=== PATIENT | male | born 1980 | race Caucasian/White ===

== ENCOUNTER 2016-09-06 09:29 | Emergency (ER) | payer OTHER ==
[2016-09-06 09:48] VITALS: BP 121/59
[2016-09-06] MEDS ORDERED: Ibuprofen TAB* 600 MG PO ONE (10:23)
--- NOTE | 2016-09-06 10:36 | UC ---
Analisa Lozano Alok, scribed for Deidra Trotter MD on 09/06/16 at 1025 . Back Pain HPI - HPI Summary HPI Summary: 35 y/o male presents to with c/o lower back pain following moving one 150- 200 lbs shafting cleaner up flight of stairs at 1530 yesterday afternoon while at work. Pt states that he made it about half way up the flight of stairs when his lower back "gave out", causing him to crunch down but not fall. No loss of strength in legs. No direct trauma. Pt states that his legs did not give out, and denies any numbness, tingling, or weakness in his lower extremities. Pt also denies any changes in BM or bladder control/incontinence. Pt has taken ibuprofen and used Icy Hot for pain relief last night with mild affect. Pt currently states he is at a 4 out of 10 in pain severity and has not taken analtgesia today. Pt states he has never had back problems or back surgeries before, has had groin surgery for a hernia once, has anxiety and is allergic to hydrocodone. Pt rarely uses EtOH and uses e-cigarettes but does not smoke tobacco. - History of Current Complaint Chief Complaint: UCBackPain Stated Complaint: LOWER BACK INJURY Time Seen by Provider: 09/06/16 09:54 Hx Obtained From: Patient Onset/Duration: Gradual Onset, Lasting Days, Still Present Timing: Constant Severity Initially: Moderate Severity Currently: Moderate Pain Intensity: 4 Pain Scale Used: 0-10 Numeric Back Pain: Is Discrete @ - lower back Alleviating: OTC Meds - Ibuprofen, Icy Hot Associated Signs And Symptoms: Negative: Fever, Weakness, Numbness, Tingling, Bladder Incontinence, Bowel Incontinence - Allergies/Home Medications Allergies/Adverse Reactions: Allergies Allergy/AdvReac Type Severity Reaction Status Date / Time Hydrocodone Allergy Intermediate Itching Verified 09/06/16 09:41 Diphenhydramine Allergy Anxiety Verified 09/06/16 09:41 [From Benadryl] Pseudoephedrine Allergy Anxiety Verified 09/06/16 09:41 [From Sudafed] Home Medications: Home Medications Ibuprofen [Ibuprofen 200 MG] 40 mg PO Q6H PRN 09/06/16 [History Confirmed ] PMH/Surg Hx/FS Hx/Imm Hx Previously Healthy: Yes Psychological History Of: Reports: Anxiety - Surgical History Surgical History: Yes Surgery Procedure, Year, and Place: hernia surgery - Family History Known Family History: Positive: Other - Yes Depression (Aunt) No Alcohol abuse - Social History Occupation: Employed Full-time Lives: With Family - Mother Alcohol Use: Rare Substance Use Type: None Smoking Status (MU): Former Smoker Type: eCigarettes - Immunization History Most Recent Influenza Vaccination: none Most Recent Tetanus Shot: 09/2014 Review of Systems Constitutional: Negative Skin: Negative Eyes: Negative ENT: Negative Respiratory: Negative Cardiovascular: Negative Gastrointestinal: Negative Genitourinary: Negative Motor: Negative Neurovascular: Negative Musculoskeletal: Myalgia - Lower back pain Neurological: Negative Psychological: Negative All Other Systems Reviewed And Are Negative: Yes Physical Exam Triage Information Reviewed: Yes Appearance: Well-Appearing, No Pain Distress, Well-Nourished, Other: - PT ambulating around department. No limitations of obvious discomfort Vital Signs: Initial Vital Signs Temp 98.6 F 09/06/16 09:43 Pulse 70 09/06/16 09:43 Resp 16 09/06/16 09:43 BP 121/59 09/06/16 09:43 Pulse Ox 100 09/06/16 09:43 Neck: Positive: Supple, Nontender, No Lymphadenopathy Respiratory Exam: Normal Respiratory: Positive: Normal breath sounds, No respiratory distress Cardiovascular Exam: Normal Cardiovascular: Positive: RRR, No Murmur Musculoskeletal: Positive: Strength Intact, Other: - No pain C/T/L/S. no reproducible pain but states pain is mid sacral paraspinal area + SLE b/l with report back L>R + flex/ext knee, merlyn + great toe extension + abduction, adduction without discomfort Neurological: Positive: Other: - + b/l equal sensation throughout b/l LE 2+ patellar, achilles - no clonus Psychological Exam: Normal Skin Exam: Normal Back Pain Course/Dx - Course Course Of Treatment: Pt with low sacral paraspinal pain s/p pulling injury at work yesterday. Pt with minimal discomfort with exam, no analgesia today. Recommend motrin/apap. heat. stretch. flexeril QHS x 5 days. PCP f/u - physician referral if PCP does not take WC. work restrictions. return prn - precautions discussed - Differential Dx/Diagnosis Provider Diagnoses: back strain Discharge - Discharge Plan Condition: Stable Disposition: HOME Prescriptions: Cyclobenzaprine TAB* [Flexeril 10 MG TAB*] 10 mg PO BEDTIME #5 tab Patient Education Materials: Low Back Strain (ED) Forms: *Work Release Referrals: [facility] [Outside] Tate Hurley MD [Primary Care Provider] - Additional Instructions: - Okay to alternate ibuprofen (Advil, Motrin) and tylenol every 3 hours for pain or fever. Take with food. Do NOT take for more than 4-5 days. -Okay to take muscle relaxant at bedtime as prescribed. DO NOT drive, operate machinery or drink alcohol while taking this medicaton - Apply heat to your back - 20 minutes at a time, 2-3 times a day. Slow gentle stretching when your muscles are warm - Contact your doctor to schedule a follow-up appointment. If you doctor does not see workers comp cases, you may contact the physician referral number provided for a follow-up appointment. If you develop leg weakness or difficulty controlling your bowel or bladder, you should return to the emergency department The documentation as recorded by the Analisa angel Alok accurately reflects the service I personally performed and the decisions made by , Deidra Trotter MD.
== END 2016-09-06 10:43 | disposition home or self-care (01) ==
LOC: UCEAST 09:29
DX: S39.012A Strain of muscle, fascia and tendon of lower back, initial encounter (principal); X50.0XXA Overexertion from strenuous movement or load, initial encounter; Y93.89 Activity, other specified; Y92.89 Other specified places as the place of occurrence of the external cause; Y99.0 Civilian activity done for income or pay; Z88.5 Allergy status to narcotic agent; Z88.8 Allergy status to other drugs, medicaments and biological substances; Z87.891 Personal history of nicotine dependence
CPT/HCPCS: 99212; A9270-GY; G0463

== ENCOUNTER 2016-09-19 08:18 | Emergency (ER) | payer BC, OTHER ==
[2016-09-19 08:36] VITALS: BP 112/67
--- NOTE | 2016-10-01 16:52 | UC ---
Gloria Lozano Anna, scribed for Sofia Gupta MD on 09/19/16 at 0849 . Respiratory Complaint HPI - HPI Summary HPI Summary: Patient is a 35 y/o male coming to [facility] [place] presenting with gradual onset of a cough that began one week ago. He first noticed a sore throat. He has additionally experienced nausea and fatigue. The symptoms had somewhat resolved , then worsened yesterday. He feels congested and as if his throat is still sore. Denies rashes, fever, chills, myalgia. He did not receive a flu shot this year. His girlfriends children have had a cold. He has been drinking tea at night. 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 He smokes electronic cigarettes. He does not regularly use inhalers. He is agreeable to using one. - History of Current Complaint Stated Complaint: CONGESTION Time Seen by Provider: 09/19/16 08:28 Hx Obtained From: Patient Onset/Duration: Lasting Days, Still Present, Worse Since - yesterday - Allergies/Home Medications Allergies/Adverse Reactions: Allergies Allergy/AdvReac Type Severity Reaction Status Date / Time Hydrocodone Allergy Intermediate Itching Verified 09/19/16 08:35 Diphenhydramine Allergy Anxiety Verified 09/19/16 08:35 [From Benadryl] Pseudoephedrine Allergy Anxiety Verified 09/19/16 08:35 [From Sudafed] PMH/Surg Hx/FS Hx/Imm Hx Psychological History Of: Reports: Anxiety - Surgical History Surgical History: Yes Surgery Procedure, Year, and Place: hernia surgery - Family History Known Family History: Positive: Other - Yes Depression (Aunt) No Alcohol abuse - Social History Occupation: Employed Full-time - Snow removal Lives: With Family Alcohol Use: Rare Substance Use Type: None Smoking Status (MU): Former Smoker Type: eCigarettes - Immunization History Most Recent Influenza Vaccination: none Most Recent Tetanus Shot: 09/2014 Review of Systems Constitutional: Fatigue Skin: Negative Eyes: Negative ENT: Sore Throat Respiratory: Cough Cardiovascular: Negative Gastrointestinal: Other - nausea Genitourinary: Negative Motor: Negative Neurovascular: Negative Musculoskeletal: Negative Neurological: Negative Psychological: Negative All Other Systems Reviewed And Are Negative: Yes Physical Exam Triage Information Reviewed: Yes Appearance: Well-Nourished Vital Signs: Initial Vital Signs Temp 99.1 F 03/21/17 08:35 Pulse 89 09/19/16 08:35 Resp 16 09/19/16 08:35 BP 112/67 09/19/16 08:35 Pulse Ox 99 09/19/16 08:35 Vital Signs Reviewed: Yes ENT: Positive: Pharyngeal erythema - Posterior pharynx erythematous. No sores. Uvula midline., Other: - Frontal sinus tenderness Neck exam: Normal Neck: Positive: Other: - No adenopathy appreciated Respiratory: Positive: Chest non-tender, No respiratory distress, No accessory muscle use, Wheezing - Expiratory wheezes scattered throughout Cardiovascular: Positive: RRR, No Murmur, Pulses Normal, Brisk Capillary Refill Abdominal Exam: Normal Abdomen Description: Positive: Nontender, No Organomegaly, Soft Bowel Sounds: Positive: Present Musculoskeletal Exam: Normal Musculoskeletal: Positive: Strength Intact Neurological Exam: Normal - Nonfocal, grossly intact Psychological Exam: Normal - Conversing easily and appropriately Skin Exam: Normal - No visible or reported rash UC Diagnostic Evaluation - Laboratory O2 Sat by Pulse Oximetry: 99 Respiratory Course/Dx - Course Course Of Treatment: No new problems in CCC. Considered below differential diagnoses. Symptoms c/w. reviewed allergies w/ pt., maria isabel in regard to rx for albuterol. He has taken it before without issue or problems. Thinks the allergy to pseudoephedrine was more of a combination of untreated anxiety at the same time. - Differential Dx/Diagnosis Provider Diagnoses: acute bronchitis. bronchospasm Discharge - Discharge Plan Condition: Stable Disposition: HOME Prescriptions: Albuterol HFA INHALER* [Ventolin HFA Inhaler*] 1 - 2 puff INH Q4H PRN #1 mdi PRN Reason: Wheezing Azithromyxin HAROON (NF) [Z-Haroon (Zithromax) 250 mg tabs #6] 2 tab PO .TODAY, THEN 1 DAILY #6 tab Patient Education Materials: Albuterol (By breathing), Acute Bronchitis (ED), Bronchospasm (ED) Forms: *Work Release Referrals: Tate Hurley MD [Primary Care Provider] - Additional Instructions: Please follow up with your primary care provider. Seek medical attention for worsening problems in the meantime. Influenza test negative today The documentation as recorded by the Gloria angel Anna accurately reflects the service I personally performed and the decisions made by , Sofia Gupta MD.
== END 2016-09-19 09:56 | disposition home or self-care (01) ==
LOC: UCEAST 08:18
DX: R09.89 Other specified symptoms and signs involving the circulatory and respiratory systems (principal)
CPT/HCPCS: 87502; 99212; G0463

== ENCOUNTER 2019-07-07 08:24 | Emergency (ER) | payer BC, OTHER ==
[2019-07-07 08:36] VITALS: BP 113/74
--- NOTE | 2019-07-07 08:39 | UC ---
Back Pain HPI - HPI Summary HPI Summary: 38 yo male presents with low back pain. He tells me that yesterday at work he was lifting and moving bags of walkway salt and in the process he lifted and twisted and felt a pull in his central lower back. Since that time has been stiff and has pain with flexion, extension, twisting, and trying to lift objects. This morning feels a little better. He took ibuprofen just [employer]. Denies radiation of pain, numbness, tingling, weakness, saddle anesthesia, loss of bowel/bladder control. - History of Current Complaint Chief Complaint: UCBackPain Stated Complaint: BACK INJURY Time Seen by Provider: 07/07/19 08:37 Hx Obtained From: Patient Onset/Duration: Sudden Onset Timing: Constant Severity Initially: Moderate Severity Currently: Moderate Pain Intensity: 7 Pain Scale Used: 0-10 Numeric - Allergies/Home Medications Allergies/Adverse Reactions: Allergies Allergy/AdvReac Type Severity Reaction Status Date / Time diphenhydramine Allergy Anxiety Verified 07/07/19 08:38 [From Benadryl] hydrocodone Allergy Itching Verified 07/07/19 08:38 pseudoephedrine Allergy Anxiety Verified 07/07/19 08:38 [From Sudafed] PMH/Surg Hx/FS Hx/Imm Hx Psychological History: Anxiety, Depression - Surgical History Surgical History: Yes Surgery Procedure, Year, and Place: hernia surgery - Family History Known Family History: Positive: Other - Yes Depression (Aunt) No Alcohol abuse - Social History Occupation: Employed Full-time Lives: With Family Alcohol Use: Rare Substance Use Type: None Smoking Status (MU): Former Smoker Type: eCigarettes - Immunization History Most Recent Influenza Vaccination: none Most Recent Tetanus Shot: 09/2014 Review of Systems All Other Systems Reviewed And Are Negative: No Constitutional: Positive: Negative Skin: Positive: Negative Respiratory: Positive: Negative Cardiovascular: Positive: Negative Neurovascular: Positive: Negative Musculoskeletal: Positive: Other: - LBP Neurological: Positive: Negative Psychological: Positive: Negative Physical Exam - Summary Physical Exam Summary: GENERAL: NAD. WDWN. No pain distress. SKIN: No rashes, sores, lesions, or open wounds. NECK: Supple. FROM. Nontender. CHEST: CTAB. No r/r/w. No accessory muscle use. Breathing comfortably and in no distress. CV: RRR. Pulses intact. Cap refill <2seconds MSK: TTP over lumbar paraspinal muscles RIGHT>LEFT. Pain with flexion and extension of spine. Positive SLR on right for low back pain without radiation. Strength 5/5 B/L LEs including dorsiflexion and plantar flexion. FROM B/L LEs. No edema. NEURO: Alert. Sensations intact B/L LEs L3-S1. Reflexes intact PSYCH: Age appropriate behavior. Triage Information Reviewed: Yes Vital Signs: Initial Vital Signs Temp 98 F 07/07/19 08:33 Pulse 67 07/07/19 08:33 Resp 16 07/07/19 08:33 BP 113/74 07/07/19 08:33 Pulse Ox 100 07/07/19 08:33 Vital Signs Reviewed: Yes Diagnostics - Radiology Lumbar XR Radiology Interpretation Completed By: Radiologist Summary of Radiographic Findings: IMPRESSION: #. Negative for fracture. #. Degenerative spondylosis and facet joint osteoarthritis at L4-L5 and L5-S1. Back Pain Course/Dx - Course Course Of Treatment: XR as above. Suspect muscle strain. Declined muscle relaxers - he wishes to continue taking ibuprofen. Will write him a note for work. Advised to f/u with Dr. Price regarding his work related injury - Differential Dx/Diagnosis Provider Diagnosis: Low back strain Discharge ED - Sign-Out/Discharge Documenting (check all that apply): Patient Departure All imaging exams completed and their final reports reviewed: Yes - Discharge Plan Condition: Stable Disposition: HOME Patient Education Materials: Low Back Strain (ED), Lower Back Exercises (ED) Forms: *Work Release Referrals: Tate Hurley MD [Primary Care Provider] - Shaggy Price MD [Medical Doctor] - As Soon As Possible Additional Instructions: If you develop a fever, shortness of breath, chest pain, new or worsening symptoms - please call your PCP or go to the ED immediately. 1) Rest and apply heat intermittently throughout the day to your back 2) I recommend that you call Dr. Price at the number below to schedule a follow up within 1 week regarding your work related injury 3) Continue taking ibuprofen as directed for discomfort - Billing Disposition and Condition Condition: STABLE Disposition: Home - Attestation Statements Provider Attestation: Pt not seen by me. I was available for consult. Chart reviewed. GARY
== END 2019-07-07 09:46 | disposition home or self-care (01) ==
LOC: UCEAST 08:24
DX: S39.012A Strain of muscle, fascia and tendon of lower back, initial encounter (principal); M47.896 Other spondylosis, lumbar region; M47.817 Spondylosis without myelopathy or radiculopathy, lumbosacral region; Z87.891 Personal history of nicotine dependence; X50.1XXA Overexertion from prolonged static or awkward postures, initial encounter; Y92.9 Unspecified place or not applicable; Y99.0 Civilian activity done for income or pay; Z88.8 Allergy status to other drugs, medicaments and biological substances
CPT/HCPCS: 72110; 99211; G0463